=== PATIENT | female | born 1990 | race American Indian/Alaskan Native ===

== ENCOUNTER 2016-09-23 07:24 | Emergency (ER) | payer BC ==
[2016-09-23 08:24] LABS: Alanine Aminotransferase 21 units/L (7-56); Albumin 4.6 g/dL (3.9-5); Albumin/Globulin Ratio 1.4 %; Alkaline Phosphatase 59 units/L (35-129); Anion Gap 24 mmol/L; Bilirubin,Total 0.4 mg/dL (0.1-1.2); Blood Urea Nitrogen 12 mg/dL (7-17); Calcium 9.6 mg/dL (8.4-10.2); Carbon Dioxide 20 mmol/L (22-30); Chloride 97.4 mmol/L (98-107); Glucose 138 mg/dL (65-100); Lipase 14 units/L (13-60); Potassium 4.3 mmol/L (3.6-5.0); Sodium 137 mmol/L (137-145)
[2016-09-23 08:26] LABS: Basophils % (Auto) 0.5 % (0.0-1.8); Eosinophils % (Auto) 0.4 % (0.0-4.3); Hematocrit 42.8 % (30.3-42.9); Hemoglobin 13.8 gm/dl (10.1-14.3); Mean Corpuscular HGB Conc 32 % (30-34); Mean Corpuscular Hemoglobin 26 pg (28-32); Mean Corpuscular Volume 82 fl (79-97); Platelet Count 250 K/mm3 (140-440); Red Blood Count 5.23 M/mm3 (3.65-5.03); Red Cell Distribution Width 15.5 % (13.2-15.2); White Blood Count 10.8 K/mm3 (4.5-11.0)
[2016-09-23 08:45] LABS: Bilirubin,Urine NEG (Negative); Blood,Urine NEG (Negative); Ketones,Urine 20 mg/dL (Negative); Leukocyte Esterase,Urine NEG (Negative); Mucus,Urine 2+ /HPF; Nitrite,Urine NEG (Negative); Urobilinogen,Urine < 2.0 mg/dL (<2.0)
[2016-09-23] MEDS ORDERED: MORPHINE IV ONE ×2 (10:33→12:34)
[2016-09-23] MEDS ORDERED: ZOFRAN IV ONE (10:33)
[2016-09-23] MEDS ORDERED: NACL 0.9% 1000 ML 1,000 ML IV ONE ×3 (10:33→14:02)
--- NOTE | 2016-09-23 10:41 | Emergency Department Report ---
HPI - General Chief Complaint: Abdominal Pain Time Seen by Provider: 09/23/16 10:29 - HPI HPI: This is a 26-year-old Afro[place] female who presents to the emergency department by EMS from home with complaint of lower abdominal pain as well as nausea and vomiting that has been going on since yesterday. She denies any fever, diarrhea, back pain, dysuria, vaginal bleeding or discharge. The patient says she has a history of endometriosis and says that this feels similar. 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 She's been taking tramadol for her pain that she had from previous episodes of this but she has not gotten any relief. No recent travel or sick contacts at home. She denies any surgical history. ED Past Medical Hx - Past Medical History Previous Medical History?: Yes Additional medical history: Edometriosis - Surgical History Past Surgical History?: No - Social History Smoking Status: Current Every Day Smoker Substance Use Type: Alcohol, Non Opiate Pain - Medications Home Medications: Home Medications Medication Instructions Recorded Confirmed Last Taken Type traMADol [Ultram 50 MG tab] 50 mg PO Q6HR PRN #14 tablet 09/23/16 Unknown Rx ED Review of Systems ROS: Stated complaint: ABD PAIN Other details as noted in HPI Comment: All other systems reviewed and negative Constitutional: denies: chills, fever Eyes: denies: eye pain, eye discharge, vision change ENT: denies: ear pain, throat pain Respiratory: denies: cough, shortness of breath, wheezing Cardiovascular: denies: chest pain, palpitations Gastrointestinal: abdominal pain, nausea, vomiting Genitourinary: denies: urgency, dysuria, discharge Musculoskeletal: denies: back pain, joint swelling, arthralgia Skin: denies: rash, lesions Neurological: denies: headache, weakness, paresthesias Physical Exam - Physical Exam Vital Signs: Vital Signs 09/23/16 07:32 Temperature 98.8 F Pulse Rate 118 H Respiratory 22 Rate Blood Pressure 128/85 O2 Sat by Pulse 100 Oximetry Physical Exam: GENERAL: The patient is well-developed well-nourished. The patient appears uncomfortable and is squirming on the gurney. HEENT: Normocephalic. Atraumatic. Extraocular motions are intact. Patient has moist mucous membranes. Pupils equal reactive to light bilaterally. NECK: Supple. Trachea is midline. CHEST/LUNGS: Clear to auscultation. There is no respiratory distress noted. HEART/CARDIOVASCULAR: Regular. There is mild tachycardia. There is no gallop rub or murmur. ABDOMEN: Abdomen is soft. There is some reproducible tenderness to palpation to the lower quadrants of the abdomen. No guarding rebound tenderness. No peritoneal signs. Patient has normal bowel sounds. There is no abdominal distention. SKIN: Skin is warm and dry. NEURO: The patient is awake, alert, and oriented. The patient is cooperative. The patient has no focal neurologic deficits. The patient has normal speech. MUSCULOSKELETAL: There is no tenderness or deformity. There is no limitation range of motion. There is no evidence of acute injury. ED Course Vital Signs 09/23/16 07:32 Temperature 98.8 F Pulse Rate 118 H Respiratory 22 Rate Blood Pressure 128/85 O2 Sat by Pulse 100 Oximetry ED Medical Decision Making - Lab Data Result diagrams: 09/23/16 07:50 09/23/16 07:50 - Radiology Data Radiology results: image reviewed interpreted by me: Abdominal x-ray does not show any signs of obstruction or any acute process. - Medical Decision Making 26-year-old female presents with lower abdominal pain has been going on for the past few days as well as nausea and vomiting. Patient thinks it is her endometriosis. Patient does present with some tachycardia but is afebrile. Patient's labs been unremarkable including no signs of infection in the blood or urine, electrolyte abnormalities, renal insufficiency. She has normal belly labs including bilirubin, lipase and LFTs and the patient is not . Abdominal x-ray does not show any acute process. The patient was given a few doses of pain medication which did transiently bring down her blood pressure but it came back up with some IV fluid resuscitation the patient says she is currently asymptomatic with 0 out of 10 pain. With the patient being pain-free , I did not feel that CT imaging or any further imaging was necessary at this time. However the patient no she is to return to the emergency department with any return of her discomfort any acute distress. She was given referrals for primary care and gastroenterology. - Differential Diagnosis , colitis, diverticulitis, endometriosis, fibroids Critical Care Time: No Critical care attestation.: If time is entered above; I have spent that time in minutes in the direct care of this critically ill patient, excluding procedure time. ED Disposition Clinical Impression: Abdominal pain Qualifiers: Abdominal location: lower abdomen, unspecified Qualified Code(s): R10.30 - Lower abdominal pain, unspecified Disposition: DISCHARGED TO HOME OR SELFCARE Is pt being admited?: No Condition: Stable Instructions: Abdominal Pain (ED) Additional Instructions: Please follow-up with a primary care doctor in the next few days and I have also given you a referral for a local film tests checker, Dr. Viveros. Return to the emergency department with any worsening of your symptoms or any acute distress. You've been prescribed a medication that is sedating. Therefore this medication cannot be mixed with alcohol, or taken prior to driving, working , or being responsible for children. Prescriptions: traMADol [Ultram 50 MG tab] 50 mg PO Q6HR PRN #14 tablet PRN Reason: Pain Referrals: PRIMARY CARE, [Primary Care Provider] - 3-5 Days AMERICA HANSON MD [Staff Physician] - 3-5 Days MICHEAL VIVEROS MD [Staff Physician] - 3-5 Days Time of Disposition: 16:37
[2016-09-23] MEDS ORDERED: SUBLIMAZE IV ONE ×2 (12:34→13:00)
--- NOTE | 2016-09-23 12:44 | XRay Report ---
ABDOMEN, 2 views: History: Abdominal pain. There is no evidence of free air beneath the diaphragms. The gas pattern within the abdomen is unremarkable. There is no evidence of bowel dilatation, significant air-fluid levels, or pathologic calcifications. Organ shadows are unremarkable. IMPRESSION: Unremarkable abdomen.
[2016-09-23 16:42] VITALS: BP 104/64
== END 2016-09-23 16:40 | disposition home or self-care (01) ==
LOC: ED 07:24
DX: R10.30 Lower abdominal pain, unspecified (principal); F17.200 Nicotine dependence, unspecified, uncomplicated
CPT/HCPCS: 36415; 74020; 80053; 81001; 81025; 83690; 85025; 96361; 96374; 96375; 99284; J2270; J2405; J3010; J7030